=== PATIENT | female | born 1980 | race Caucasian/White ===

== ENCOUNTER 2018-10-19 20:16 | Emergency (ER) | payer OTHER ==
[~2018-10-19] VITALS: Ht 160 cm; Wt 55.7 kg
[~2018-10-19 20:16] MED LIST: ACET1TAB40 PO; ACYC800T5 PO
[2018-10-19 20:43] VITALS: Ht 160 cm; Wt 55.7 kg
--- NOTE | 2018-10-19 23:18 | ERD ---
ER Documentation Chief Complaint Chief Complaint cough x 4 days HPI Is a 38-year-old female who presents with cough for 4 days. Is worse at night. No fever. sHe can NyQuil without any relief. No hemoptysis or unplanned weight loss. No vomiting. ROS All systems reviewed and are negative except as per history of present illness. Medications Home Meds Active Scripts Acetaminophen-Codeine* (Acetaminophen-Cod #3*) 300-30 Mg Tab, 1 TAB PO Q6 PRN for PAIN, #10 TAB Prov:CLYDE MENDOZA Gina. 04/29/15 Acyclovir* (Zovirax*) 800 Mg Tablet, 800 MG PO 5 TIMES DAILY for 7 Days, TAB Prov:CLYDE MENDOZA M. 04/29/15 Allergies Allergies: Coded Allergies: No Known Allergy (Unverified Allergy, Unknown, 06/24/06) PMhx/Soc Medical and Surgical Hx: pt denies Medical Hx, pt denies Surgical Hx Hx Alcohol Use: No Hx Substance Use: No Hx Tobacco Use: No Smoking Status: Never smoker FmHx Family History: No diabetes Physical Exam Vitals Vital Signs Date Temp Pulse Resp B/P (MAP) Pulse Ox O2 O2 Flow FiO2 Time Delivery Rate 10/19/18 98.0 72 20 127/73 99 20:43 (91) Physical Exam Const: No acute distress Head: Atraumatic Eyes: Normal Conjunctiva ENT: Normal External Ears, Nose and Mouth. Neck: Full range of motion. No meningismus. Resp: Clear to auscultation bilaterally Cardio: Regular rate and rhythm, no murmurs Abd: Soft, non tender, non distended. Procedures/MDM This is an otherwise healthy, well appearing patient presenting with uncomplicated URI symptoms, likely viral in etiology. Patient is non-toxic and well hydrated. I have low suspicion for pneumonia or significant bacterial disease. Patient will be treated with outpatient supportive care; no indications for antibiotics at this time. Discharge instructions have included return precautions and close follow up with PMD. Departure Diagnosis: Primary Impression: Bronchitis Condition: Stable DAVION GAYLE PA-C Oct 19, 2018 23:18
[2018-10-19] MEDS ORDERED: PROM5SYR2 PO (23:19)
[2018-10-19] MEDS ORDERED: PRED20TA PO (23:19)
[2018-10-19 23:23] VITALS: BP 130/62; PULSE 82; RESP 19
== END 2018-10-19 23:25 | disposition home or self-care (01) ==
LOC: FTE 20:16
DX: J40 Bronchitis, not specified as acute or chronic (principal)
CPT/HCPCS: 99283